=== PATIENT | female | born 1980 | race Caucasian/White ===

== ENCOUNTER 2016-04-17 13:43 | Day surgery (SDC) | payer OTHER ==
[2016-04-17] VITALS (10 sets, daily range): BP systolic 96–115; BP diastolic 50–75; PULSE 94–108; RESP 16–23; TEMP 98.2; Ht 165.1 cm; Wt 61.4 kg
[~2016-04-17] VITALS: Ht 165.1 cm; Wt 61.4 kg
[2016-04-17] MEDS ORDERED: SOD CHLORIDE 0.9% 1,000 ML IV STA (13:47)
[2016-04-17] MEDS ORDERED: ONDANSETRON 4 MG INJ IV STA ×2 (13:49→15:32)
[2016-04-17] MEDS ORDERED: morphine 4 MG/ML VIAL IV STA (13:49)
[2016-04-17 14:53] LABS: HEMATOCRIT 36.3 % (37.0-47.0); HEMOGLOBIN 12.1 g/dl (12.0-16.0); MEAN CORPUSCULAR HEMOGLOBIN 31.1 pg (29.0-33.0); MEAN CORPUSCULAR HGB CONC 33.5 g/dl (32.0-37.0); MEAN CORPUSCULAR VOLUME 92.8 fl (82.0-101.0); MEAN PLATELET VOLUME 8.3 fl (7.4-10.4); PLATELET COUNT 314 10^3/UL (140-440); RED BLOOD COUNT 3.91 10^6/ul (4.20-5.40); RED CELL DISTRIBUTION WIDTH 13.5 % (11.5-14.5); UNCORRECTED WBC 23.3 10^3/ul (4.8-10.8); WHITE BLOOD COUNT 23.3 10^3/ul (4.8-10.8)
[2016-04-17 14:58] LABS: CONDITION 1; LH ANALYZER COMMENTS 1; SUSPECT 1
[2016-04-17 15:09] LABS: INR 0.98
--- NOTE | 2016-04-17 15:09 | RADRPT ---
PROCEDURE: US Pelvis. CLINICAL INDICATION: vaginal bleeding TECHNIQUE: Multiple sonographic images of the pelvis were obtained utilizing a transabdominal and endovaginal technique. The images were reviewed on a PACS workstation. COMPARISON: None. FINDINGS: The uterus is normal in size and demonstrates a normal appearance of the myometrium. The endometria l stripe is heterogeneous in appearance and has the thickness of 20 mm. No intrauterine gestation is noted. The ovaries are not visualized. No free fluid is present within the pelvis.. RPTAT: AA IMPRESSION: No intrauterine gestation visualized. Differential diagnosis includes early , missed or ectopic . Thickened endometrium may represent retained products of conception. Follow-up ultrasound and HCG levels is recommended. .Tomas Thornton MD, MD Date Time Electronically viewed and signed by .Tomas Thornton MD, MD on 04/17/2016 15:09 .S/
[2016-04-17 15:10] LABS: PARTIAL THROMBOPLASTIN TIME 30.1 Sec (25.0-35.0)
[2016-04-17 15:14] LABS: ALBUMIN 3.3 g/dl (3.3-4.9)
[2016-04-17 15:15] LABS: POTASSIUM 3.4 mmol/L (3.5-5.1)
[2016-04-17 15:17] LABS: ALBUMIN/GLOBULIN RATIO 0.91; BILIRUBIN,INDIRECT 0.2 mg/dl (0-1.1); BILIRUBIN,TOTAL 0.2 mg/dl (0.2-1.3); CREATININE 0.47 mg/dl (0.44-1.00); TOTAL PROTEIN 6.9 g/dl (6.1-8.1)
[2016-04-17 15:18] LABS: CALCIUM 8.9 mg/dl (8.4-10.2)
[2016-04-17] MEDS ORDERED: HYDROmorphONE 1 MG/ML SYG IV STA (15:32)
[2016-04-17 16:15] LABS: LYMPHOCYTES # 1.2 10^3/ul (0.8-2.9); MONOCYTE # 0.7 10^3/ul (0.3-0.9)
[2016-04-17 16:29] LABS: ADD UMIC YES; URINE BILIRUBIN (Dip) 1+ (NEGATIVE); URINE BLOOD (Dip) 3+ (NEGATIVE); URINE COLOR DK. RED (YELLOW); URINE GLUCOSE (Dip) NEGATIVE (NEGATIVE); URINE KETONES (Dip) 15 (NEGATIVE); URINE LEUKOCYTE ESTERASE (Dip) 2+ (NEGATIVE); URINE NITRITE (Dip) POSITIVE (NEGATIVE); URINE TOTAL PROTEIN (Dip) 4+ (NEGATIVE); URINE UROBILINOGEN (Dip) 1.0 E.U./dL (0.1-1.0)
[2016-04-17 16:54] LABS: BACTERIA,URINE FEW; ICTOTEST NEGATIVE (NEGATIVE); SQUAMOUS EPITHELIAL CELL,UR FEW; URINE RBCS >200 /HPF (0)
[2016-04-17] MEDS ORDERED: ONDANSETRON 4 MG INJ IV PRN ×2 (17:00→19:30)
[2016-04-17] MEDS ORDERED: CIPROFLOXACIN 400MG/D5W 200 ML IVPB ONE (17:00)
--- NOTE | 2016-04-17 17:34 | ERA ---
ER Documentation Chief Complaint Date/Time DATE: 04/17/16 TIME: 17:19 Chief Complaint preg vag bleed starting this morning; spotted yesterday HPI This is a very pleasant 36-year-old female that presents to the emergency department complaining of severe pelvic cramping and vaginal bleeding. The patient is a 4 para 3 currently 8 weeks dated by last menstrual period. The patient was recently diagnosed at the clinic roughly 1 week ago she stated she had been feeling nauseous and thought she had the flu. Her urine test was positive and she has not yet received any care. She does indicate that over the past several days she has been experiencing intermittent pelvic cramping. Just prior to arrival while the patient was at work she stated she felt severe cramping in her pelvis consistent with labor pains. She passed a large vaginal clot and felt lightheaded and weak and 911 was called. The patient denies a headache or changes in vision. She has had no fevers or shaking or chills. She denies any frequency urgency or dysuria. ROS All systems reviewed and are negative except as per history of present illness. Medications Home Meds No Active Prescriptions or Reported Meds Allergies Allergies: Coded Allergies: Penicillins (Verified Allergy, Unknown, 04/17/16) aspirin (Verified Allergy, Unknown, 04/17/16) erythromycin base (Verified Allergy, Unknown, 04/17/16) PMhx/Soc Medical and Surgical Hx: pt denies Medical Hx, pt denies Surgical Hx History of Surgery: No Anesthesia Reaction: No Hx Neurological Disorder: No Hx Respiratory Disorders: No Hx Cardiac Disorders: No Hx Psychiatric Problems: No Hx Miscellaneous Medical Probl: No Hx Alcohol Use: No Hx Substance Use: No Hx Tobacco Use: No Smoking Status: Unknown if ever smoked Physical Exam Vitals Vital Signs Date Time Temp Pulse Resp B/P Pulse Ox O2 Delivery O2 Flow Rate FiO2 04/17/16 17:21 98.2 105 18 112/82 100 Room Air 04/17/16 14:10 98.3 83 18 135/82 98 Physical Exam Constitutional:Well-developed. Well-nourished. HEENT:Normocephalic. Atraumatic.Pupils were equal round reactive to light. Moist mucous membranes.No tonsillar exudates. Neck: No nuchal rigidity. No lymphadenopathy. No posterior cervical spine tenderness or step-offs. Respiratory: Not using accessory muscles of respiration.Lungs were clear to auscultation bilaterally. No rhonchi. No rales. No wheezing. Cardiovascular: Regular rate regular rhythm.No murmurs. No rubs were appreciated.S1, S2 normal. Distal pulses are palpable 2+ bilaterally. GI: Abdomen was soft. Suprapubic tenderness. No tenderness in the right lower quadrant over McBurney's point. Psoas sign negative. Obturator sign negative. Non Distended. No pulsatile abdominal masses or bruits. No rebound. No guarding. Bowel sounds were present and normal. : Pelvic exam was performed by myself and the patient denied a female nurse photography instructor to be present. There was a significant amount of blood present within the vaginal vault. Cervix was open. No endocervical discharge. No adnexal tenderness or adnexal masses. Muscle skeletal: Full range of motion of both the upper and lower extremities bilaterally.Normal muscle tone.No assymetrical calf tenderness or swelling. Skin: No petechia, no purpura. No lesions on the palms or the soles of the feet. No maculopapular rash. NEURO: Patient was alert, awake, orientated x3.No facial droop. Gait observed and normal with no ataxia.Speech had regular rate and rhythm. No focal neurological deficits. Result Diagram: 04/17/16 1415 04/17/16 1415 Results 24 hrs Laboratory Tests Test 04/17/16 14:15 04/17/16 16:10 Activated Partial Thromboplast Time 30.1Sec Alanine Aminotransferase (ALT/SGPT) 27IU/L Albumin 3.3g/dl Albumin/Globulin Ratio 0.91 Alkaline Phosphatase 73IU/L Anion Gap 14 Aspartate Amino Transf (AST/SGOT) 14IU/L Band Neutrophils % 2.0% Basophils # 10^3/ul Basophils % % Beta HCG, Quantitative 73590.0mIU/ml Blood Urea Nitrogen 5mg/dl Calcium Level 8.9mg/dl Carbon Dioxide Level 24mmol/L Chloride Level 103mmol/L Creatinine 0.47mg/dl Differential Comment MANUAL DIFF Direct Bilirubin 0.00mg/dl Eosinophils # 10^3/ul Eosinophils % % Globulin 3.60g/dl Glucose Level 80mg/dl Hematocrit 36.3% Hemoglobin 12.1g/dl INR International Normalized Ratio 0.98 Indirect Bilirubin 0.2mg/dl Lymphocytes # 1.210^3/ul Lymphocytes % 5.0% Mean Corpuscular Hemoglobin 31.1pg Mean Corpuscular Hemoglobin Concent 33.5g/dl Mean Corpuscular Volume 92.8fl Mean Platelet Volume 8.3fl Monocytes # 0.710^3/ul Monocytes % 3.0% Neutrophils # 21.010^3/ul Neutrophils % 90.0% Nucleated Red Blood Cells # 10^3/ul Nucleated Red Blood Cells % /100WBC Platelet Count 00120^3/UL Potassium Level 3.4mmol/L Prothrombin Time 13.0Sec Prothrombin Time Ratio 1.0 Red Blood Count 3.9110^6/ul Red Cell Distribution Width 13.5% Sodium Level 138mmol/L Total Bilirubin 0.2mg/dl Total Protein 6.9g/dl White Blood Count 23.310^3/ul Urine Bacteria FEW Urine Bilirubin 1+ Urine Clarity TURBID Urine Color DK. RED Urine Glucose NEGATIVE% Urine Hemoglobin 3+ Urine Ictotest NEGATIVE Urine Ketones 15 Urine Leukocyte Esterase 2+ Urine Microscopic RBC >200/HPF Urine Microscopic WBC 5-10/HPF Urine Nitrite POSITIVE Urine Specific [place] 1.015 Urine Squamous Epithelial Cells FEW Urine Total Protein 4+ Urine Urobilinogen 1.0 E.U./dL Urine pH 7.5 Current Medications Medications (Trade) Dose Ordered Sig/Crescencio Route PRN Reason Start Time Stop Time Status Last Admin Dose Admin Sodium Chloride (NS) 1,000 ml @ 1,000 mls/hr Q1H STAT IV 04/17/16 13:47 04/17/16 14:46 DC 04/17/16 15:49 Morphine Sulfate (morphine) 4 mg ONCE STAT IV 04/17/16 13:49 04/17/16 13:50 DC 04/17/16 15:37 Ondansetron HCl (Zofran Inj) 4 mg ONCE STAT IV 04/17/16 13:49 04/17/16 13:50 DC 04/17/16 15:36 Hydromorphone HCl (Dilaudid) 1 mg ONCE STAT IV 04/17/16 15:32 04/17/16 15:33 DC Ondansetron HCl 4 mg 4 mg ONCE STAT IV 04/17/16 15:32 04/17/16 15:33 DC Ciprofloxacin/ Dextrose (Cipro Ivpb) 200 ml @ 200 mls/hr ONCE ONCE IVPB 04/17/16 17:00 04/17/16 17:59 04/17/16 17:40 Ondansetron HCl (Zofran Inj) 4 mg BRIDGE ORDER PRN IV NAUSEA AND/OR VOMITING 04/17/16 17:00 04/18/16 16:59 Procedures/MDM This is a 36-year-old female with first trimester vaginal bleeding and cramping. Given that the patient has not yet received any care ancillary laboratory work was obtained and the patient's beta hCG was elevated at 81,275. The patient was immediately placed in a corporate claims examiner continuous pulse oximetry and IV access was established by nursing staff. For analgesic control the patient received intravenous morphine and Zofran. Her pain did not improve and therefore she was given intravenous Dilaudid. Ultrasound of the pelvis ordered and reviewed by myself and performed by the biological science technician fish indicated the following: No intrauterine gestation visualized. Differential diagnosis includes early , missed or ectopic . Thickened endometrium may represent retained products of conception. Follow-up ultrasound and HCG levels is recommended. Given the patient's beta hCG was elevated past the discriminatory zone I did obtain a consult with her COMMERCIAL BAKER HELPER kindly came to the bedside to further evaluate the patient he repeated the pelvic exam with myself at bedside as a photography instructor and the patient still continued to have a significant amount of vaginal bleeding and pain. Therefore the decision was made to take the patient to the OR to undergo dilation and curettage for an incomplete . Clinical suspicion after performing the exam and obtaining her history was low for ectopic . She did have leukocytosis with an infection in her urine and therefore was given IV ciprofloxacin in the emergency department. The patient is allergic to penicillin. The patient will be admitted in serious condition under the care of the COMMERCIAL BAKER HELPER Dr. Squires. I did not obtain a CT scan of the abdomen as my clinical suspicion was low for appendicitis. Critical Care: Time: 50 minutes Treatments/Evaluations: Close monitoring and treatment of unstable vital signs, cardiorespiratory, and neurologic status, while maintaining tight balance of fluid, respiratory, and cardiac interventions. Time does not include performing any of the above billable procedures. Departure Diagnosis: Primary Impression: Incomplete Additional Impression: Urinary tract infection Qualified Code: N30.01 - Acute cystitis with hematuria Condition: Serious SAMARIA ESTRADA Apr 17, 2016 17:33
[2016-04-17] MEDS ORDERED: PROPOFOL 20 ML ONE (18:09)
[2016-04-17] MEDS ORDERED: SUCCINYLCHOLINE CHLORIDE 100 MG/5 ML SYG IV ONE (18:09)
[2016-04-17] MEDS ORDERED: MIDAZOLAM 1 MG/ML 2 ML INJ ONE (18:09)
[2016-04-17] MEDS ORDERED: LIDOCAINE 2% (SDV) 5 ML INJ ONE (18:09)
[2016-04-17] MEDS ORDERED: PHENYLephrine (100 MCG/ML) 5ML SYG ONE ×3 (18:19→18:51)
[2016-04-17] MEDS ORDERED: ONDANSETRON 4 MG INJ ONE (18:20)
[2016-04-17] MEDS ORDERED: METOCLOPRAMIDE 10 MG INJ ONE (18:20)
[2016-04-17] MEDS ORDERED: FAMOTIDINE 20 MG INJ ONE (18:20)
[2016-04-17] MEDS ORDERED: DEXAMETHASONE 4 MG/ML 1 ML INJ ONE (18:20)
[2016-04-17] MEDS ORDERED: OXYTOCIN 10 UNIT INJ ONE (18:39)
--- NOTE | 2016-04-17 19:07 | PREOPHP ---
DATE OF ADMISSION: 04/17/2016 HISTORY OF PRESENT ILLNESS: This patient is a 36-year-old, 4, para 3, whose last delivery was in February 2015. She came to the hospital due to vaginal bleeding during . Her last menstrual period was 01/31/2016, and as I mentioned, she states that she was and has passed a fairly large size blood clot, with pain, and came here for examination. On pelvic exam the cervix was open 2 cm, uterus is enlarged about 7 weeks size.. ALLERGIES SHE SAYS SHE IS ALLERGIC TO: 1. PENICILLIN. 2. ERYTHROMYCIN. 3. ASPIRIN. PAST MEDICAL AND OBSTETRIC HISTORY: Her deliveries were all normal. She did not have any major medical problems in the past. PHYSICAL EXAMINATION EARS, NOSE AND THROAT: Appear to be normal. NECK: Normal. No neck vein distention, no thyromegaly, no lymph node enlargement anywhere in the body. LUNGS: Clear to auscultation and percussion. No rales. HEART: Normal sinus rhythm. ABDOMEN: Soft. There is some tenderness of the lower abdomen. No CVA tenderness. PELVIC: Still has bleeding. Cervix was dilated and soft, about 2 cm. Uterus enlarged around 6 to about 7-weeks' size. EXTREMITIES: Normal. No edema, no varicosity. IMPRESSION: Incomplete . She will undergo a D and C. I should mention that an ultrasound study the adnexa were normal. The uterus was normal, somewhat larger. There was thickening of endometrium and some blood clot is mentioned in the radiology. Dictated By: DARRYL GEORGE/INDRA Conf#: [id number] DID#: [id number] MTDD
[2016-04-17] MEDS ORDERED: PROCHLORPERAZINE 10 MG INJ IV PRN (19:30)
[2016-04-17] MEDS ORDERED: HYDROmorphONE (0.2 MG/ML) 10ML SYG IV PRN (19:30)
[2016-04-17] MEDS ORDERED: DIPHENHYDRAMINE 50 MG INJ IV PRN (19:30)
[2016-04-17] MEDS ORDERED: OXYCODONE/ACETAMINOPHEN (5/325) TAB PO PRN (19:30)
[2016-04-17] MEDS ORDERED: FENTAnyl 50 MCG/ML VIAL IV PRN (19:30)
[2016-04-17] MEDS ORDERED: MEPERIDINE 25 MG INJ IV PRN (19:30)
--- NOTE | 2016-04-17 19:48 | OPR ---
DATE OF OPERATION: PREOPERATIVE DIAGNOSES: Incomplete for of about 12 weeks. POSTOPERATIVE DIAGNOSES: Incomplete with of about 12 weeks. OPERATION PERFORMED: Dilatation and curettage. DESCRIPTION OF PROCEDURE: Under satisfactory general anesthesia, the patient was placed in lithotomy position. Antibiotic was given through IV and then a bimanual pelvic examination was performed. The uterus appeared to be about 8-to -9 weeks and the cervix was already dilated. Then, a weighted speculum was placed inside the vagina and the anterior lip of the cervix was picked up by a tenaculum. The uterus sounded about 11 to 12 cm. Then, the evacuation of the uterine contents was performed using a 12 and then a 9-mm vacuum curette. At the end of the procedure, a gentle sharp curette was used to ensure complete evacuation of uterine cavity. Estimated blood loss was about 50 to 100 mL. She tolerated the procedures well and was transferred to the recovery room. The specimen was sent for pathological examination. Dictated By: DARRYL GEORGE/INDRA Conf#: [id number] DID#: [id number] VALE
== END 2016-04-17 21:10 | disposition home or self-care (01) ==
LOC: E/R 13:43 → SDS 17:44
DX: O03.4 Incomplete spontaneous abortion without complication (principal)
CPT/HCPCS: 36415; 59812; 76801; 76817; 80053; 81001; 84702; 85025; 85610; 85730; 86850; 86900; 86901; 88305; 96374; 96375; J0330; J0744; J1100; J2250; J2270; J2370; J2405; J2590; J2765; J7030; Z7502; Z7512; Z7610; 81003